=== PATIENT | male | born 2000 | race Caucasian/White ===

== ENCOUNTER 2018-12-02 09:39 | Emergency (ER) | payer OTHER ==
[~2018-12-02] VITALS: Ht 190.5 cm; Wt 86.2 kg
== END 2018-12-02 11:30 | disposition home or self-care (01) ==
LOC: ED 09:39
PROC: 0JQH0ZZ Repair Left Lower Arm Subcutaneous Tissue and Fascia, Open Approach (ICD-10-PCS; principal; 2018-12-02)
DX: S56.922A Laceration of unspecified muscles, fascia and tendons at forearm level, left arm, initial encounter (principal); W26.0XXA Contact with knife, initial encounter
CPT/HCPCS: 12034; 99282-25